=== PATIENT | male | born 1955 | race Caucasian/White ===

== ENCOUNTER 2021-07-30 15:54 | Emergency (ER) | payer MEDICAID, OTHER ==
[~2021-07-30] VITALS: Ht 185.4 cm; Wt 79.5 kg
[~2021-07-30 15:54] MED LIST: HYDR-4383 PO; PRED10TA PO
[2021-07-30 16:12] VITALS: BP 117/77
== END 2021-07-30 16:32 | disposition left against medical advice (07) ==
LOC: ER 15:54
DX: R05.9 Cough, unspecified (principal); Z53.21 Procedure and treatment not carried out due to patient leaving prior to being seen by health care provider

== ENCOUNTER 2024-10-30 09:29 | Emergency (ER) | payer MEDICAID, MEDICARE, OTHER ==
[~2024-10-30] VITALS: Ht 185.4 cm; Wt 77.9 kg
[2024-10-30 09:33] VITALS: BP 145/84; PULSE 98; RESP 16; O2SAT 99
--- NOTE | 2024-10-30 10:20 | Physician Documentation ---
History of Present Illness ~ Chief Complaint: Foot pain Stated Complaint: FALL/L FOOT PAIN Time Seen by MD: 09:36 Primary Medical Doctor: NONE HPI The patient is seen today with complaints of pain in his left foot after rolling his ankle few days ago. Patient states he has had more swelling and pain over the last couple of days in his unable to bear weight on his left foot because of pain. Patient has no other concern or complaint at this time. Patient denies any head strike or loss of consciousness. Tetanus witin 5 years: No Medication Reconciliation Allergies: Coded Allergies: lidocaine (Unverified Allergy, Unknown, 10/30/24) Scheduled Hydrocodone/Acetaminophen ([employer] 5-325 Tablet), 1 TABLET PO TID Prednisone (Prednisone), 0 PO DAILY Review of Systems Constitutional: Denies: chills, fever, weakness Eyes: Denies: pain, blurred vision ENT: Denies: ear pain, nose pain, throat pain, mouth pain Respiratory: Denies: cough, shortness of breath Cardiovascular: Denies: chest pain, palpitations Gastrointestinal: Denies: abdominal pain, nausea, vomiting Genitourinary: Denies: burning, dysuria Male Genitalia: Denies: penile discharge, testicular pain Neurological: Denies: headache, dizziness Musculoskeletal: Denies: pain, swelling Integumentary: Denies: rash, lesions Allergic/Immunologic: Denies: hives, itching Hematologic/Lymphatic: Denies: no symptoms reported Psychiatric: Denies: depression, anxiety Physical Exam Vital Signs: Temperature: 98.0, Source: Temporal, Heart Rate: 98, Respiratory Rate: 16, BP: 145/84, Pulse Oximetry: 99, Weight: 77.900 Oxygen Flow Rate: 0 Physical Exam General: Awake and Alert, no acute distress. HEENT: Conjunctiva pink, Sclera clear, Mucus Membranes moist. Neck: Supple without masses and tenderness. Resp: Unlabored. Lungs clear to auscultation bilaterally. Heart: Regular Rate and rhythm, normal S1 and S2 without murmur, rub or gallop. Musculoskeletal: Patient on exam has swelling and ecchymosis and significant tenderness to palpation of the proximal head of the left 5th metatarsal. Patient is neurovascularly intact distally. Motor function is intact distally. Patient is unable to bear weight without significant pain. Extremities: No cyanosis,clubbing or edema. Skin: Warm and Dry. Progress Results/Orders Results/Orders Orders - ERIKA CARVER Foot, Complete (3vw Min) (10/30/24 10:33) Ankle, Complete(3vw Min) (10/30/24 10:34) Ortho Orders (10/30/24 11:31) Completed Orders - ERIKA CARVER Foot, Complete (3vw Min) (10/30/24 10:33) Ankle, Complete(3vw Min) (10/30/24 10:34) Vital Signs 10/30/24 09:33 Temp 98.0 Pulse 98 Resp 16 B/P (MAP) 145/84 Pulse Ox 99 O2 Flow Rate 0 EKG/XRAY/CT/US/VASC/MRI Bone/Soft Tissue X-Ray (Ext.) : Additional Comment X-ray of left foot interpreted by myself today does show acute fracture of the left 5th metatarsal consistent with a Bonner fracture. Other bones are in line anatomically. Patient has no osteolytic or blastic lesions. DIAGNOSTIC RADIOLOGY Patient: EFREN REHMAN Medical Record: [id number] : 1955, Age: 68 Sex: Male Location: ER Patient Status: [facility] ER Service Date/Time: 10/30/241033 Ordering Physician: ERIKA CARVER Exam: ANKLE, COMPLETE(3VW MIN) Procedure: DI ANKLE, COMPLETE(3VW MIN) 10/30/2024 10:26 AM TECHNIQUE: DI ANKLE, COMPLETE(3VW MIN), DI FOOT, COMPLETE (3VW MIN) Indication: left foot pain/injury Comparison: None Findings/impression: Acute nondisplaced fracture of the 5th metatarsal proximal metaphysis extending to intermetatarsal joint compatible suggestive of Bonner fracture. The ankle mortise and syndesmotic spaces are maintained. Subtalar joints are maintained. Talus is unremarkable. The remainder of the metatarsals and phalanges are intact. Soft tissue swelling is seen on the lateral aspect of 5th metatarsal. Electronically Signed by:EDGARD BAL MD Date & Time: 10/30/24 1047 Dictated by: EDGARD BAL MD Dictation date and time: 10/30/24 1025 Primary Care Provider: NO PRIMARY CARE PROVIDER cc: ERIKA CARVER ~ Medical Decision Making Findings The patient is seen today with complaints of pain in his left foot after rolling his ankle few days ago. Patient states he has had more swelling and pain over the last couple of days in his unable to bear weight on his left foot because of pain. Patient has no other concern or complaint at this time. Patient denies any head strike or loss of consciousness. Patient was given a walking boot and will continue Tylenol and ibuprofen as needed for symptomatic pain relief. Patient will be toe-touch weight-bearing for 1-2 weeks. Patient will follow up with [facility] as soon as possible for further eval and treatment. Return to ED with any worsening, concerning or changing symptoms. Departure Disposition: 01 HOME / SELF CARE / HOMELESS Impression: Primary Impression: Fracture of foot Qualified Codes: S92.902A - Unspecified fracture of left foot, initial encounter for closed fracture Condition: Improved Discharge Instructions: Fracture, Foot Additional Instructions: Patient was given a walking boot and will continue Tylenol and ibuprofen as needed for symptomatic pain relief. Patient will be toe-touch weight-bearing for 1-2 weeks. Patient will follow up with [facility] as soon as possible for further eval and treatment. Return to ED with any worsening, concerning or changing symptoms. Referrals: NO PRIMARY CARE PROVIDER (PCP) Signature Scribe Signature: No scribe Attestation: No scribe ERIKA CARVER October 30, 2024 10:20
--- NOTE | 2024-10-30 10:50 | RADIOLOGY REPORT ---
Procedure: DI ANKLE, COMPLETE(3VW MIN) 10/30/2024 10:26 AM TECHNIQUE: DI ANKLE, COMPLETE(3VW MIN), DI FOOT, COMPLETE (3VW MIN) Indication: left foot pain/injury Comparison: None Findings/impression: Acute nondisplaced fracture of the 5th metatarsal proximal metaphysis extending to intermetatarsal alexander int compatible suggestive of Bonner fracture. The ankle mortise and syndesmotic spaces are maintained. Subtalar joints are maintained. Talus is unremarkable. The remainder of the metatarsals and phalang es are intact. Soft tissue swelling is seen on the lateral aspect of 5th metatarsal.
[2024-10-30 11:54] VITALS: TEMP 98
== END 2024-10-30 11:56 | disposition home or self-care (01) ==
LOC: ER 09:29
DX: S92.355A Nondisplaced fracture of fifth metatarsal bone, left foot, initial encounter for closed fracture (principal); Z88.8 Allergy status to other drugs, medicaments and biological substances; X58.XXXA Exposure to other specified factors, initial encounter; Y93.89 Activity, other specified; Y92.89 Other specified places as the place of occurrence of the external cause; Y99.8 Other external cause status
CPT/HCPCS: 73610; 73630; 99284; L4360